=== PATIENT | female | born 1945 | race Caucasian/White ===

== ENCOUNTER 2018-10-06 11:00 | Outpatient (CLI) | payer MEDICARE, BC, SELFPAY ==
--- NOTE | 2018-10-06 11:00 | DI.RAD_ITS ---
SYMPTOM/DIAGNOSIS: PERSISTENT COUGH 3 WEEKS, POSSIBLE RLL RHONCHI R05 PA AND LATERAL CHEST: The heart is normal in size. The lungs are clear. The mediastinal structures and pleura appear intact. CONCLUSION: Normal chest. No evidence of acute cardiopulmonary disease.
== END 2018-10-06 11:20 ==
PROVIDERS: PCP Family Medicine; Visit Provider Family Medicine
DX: R05 Cough (principal)
CPT/HCPCS: 71046

== ENCOUNTER 2021-08-24 16:56 | Emergency (ER) | payer MEDICARE, BC, SELFPAY ==
--- NOTE | 2021-08-24 17:00 | DI.RAD_ITS ---
Exam(s) XR HAND RT COMPLETE EXAM: XR HAND RT COMPLETE CLINICAL HISTORY: pain. TECHNIQUE: 2D digital imaging was performed. COMPARISON: No exams were available for comparison FINDINGS: No evidence of acute fracture nor subluxation in the hand. No osseous lesions nor erosions. Small o steophytic density seen adjacent to the head of the proximal phalanx of the thumb. Mild degenerative changes including calcific densities off the dorsal aspect of the DIP joints of the 2nd and 3rd fing ers. IMPRESSION: No evidence of acute fracture. Other findings as above. DATA REPOSITORY: RADIATION DOSE DELIVERED:
--- NOTE | 2021-08-24 17:00 | DI.RAD_ITS ---
Exam(s) XR WRIST RT COMPLETE EXAM: XR WRIST RT COMPLETE CLINICAL HISTORY: pain. TECHNIQUE: 2D digital imaging was performed. COMPARISON: No exams were available for comparison FINDINGS: There is a nondisplaced fracture in the distal ulna with oblique orientation. No other fractures adrienne ntified. No significant ulnar variance. Small corticated density off the distal aspect of the ulnar styloid does not represent an acute fracture at this level. No carpal dislocation. Bone density is age-appropriate. No fractures of distal radius. IMPRESSION: There is nondisplaced in the distal diaphysis of the ulna. No fractures of the visualized radius nor carpal row bones evident DATA REPOSITORY: RADIATION DOSE DELIVERED:
[2021-08-24 17:02] VITALS: BP 156/73; PULSE 84; RESP 14; TEMP 36.6; O2SAT 97
--- NOTE | 2021-08-24 17:09 | W.ED.GENAD ---
Discharge Plan Disposition Patient Disposition: HOME Condition: Stable Discharge Details Clinical Impression: Fracture of right ulna Primary Care Provider: Oscar Bender ED Provider: Kaz Chowdhury Home Meds and New Rx's Prescriptions: New oxycodone 5 mg tablet 5 mg PO TID PRN (Reason: pain) Qty: 10 RF: 0 Continued Calcio Codie 500 MG tablet 500 mg PO QAM RF: 0 ascorbic acid (vitamin C) [Vitamin C] 500 MG tablet 500 mg PO QAM RF: 0 aspirin 81 MG tablet,chewable 81 mg PO QAM RF: 0 iron 325 MG capsule, extended release 325 mg PO QAM RF: 0 Martinic 1 EACH capsule 1 ea PO QAM RF: 0 Super B Complex + C 150 MG tablet 150 mg PO QAM RF: 0 cholecalciferol (vitamin D3) 1,000 UNITS tablet 1,000 units PO QAM RF: 0 vitamin E (dl, acetate) 400 UNITS capsule 800 unit PO QAM RF: 0 omega 2-gsd-dlm-fish oil 1 EACH capsule 1 ea PO QAM RF: 0 Discharge Instructions Additional Instructions: call orthopedics Friday for an appointment for follow up you can take 1000mg tylenol and 600mg ibuprofen every 6 hours as needed if you have severe worsening pain return to the emergency department Referrals: Kaiden Jimenez MD [ [facility]YSICIAN] - Medical Decision Making 76 yo female comes in with right wrist pain. She states earlier she was shoveling snow and the shovel got stuck against ice and her wrist bent back causing pain. Denies falls or other injuries or loc. No headache, neck pain, chest pain, abdomen pain, only has pain in the right forearm/wrist and hand. She has no tenderness in the shoulder, humerus, elbow. Has tenderness to the anterior mid right forearm, anterior mid wrist and palm, has intact sensation and pulses and no visible or palpable deformities. Normal range of motion and sensation of the wrist and hand. Suspect a sprain but given her tenderness will xray to evaluate for possible nondisplaced fracture. Has no snuffbox tenderness so doubt scaphoid fracture xray shows a nondisplaced oblique ulna fracture. She remain stable, discussed with Dr. jimenez and placed in ulnar gutter splint and will f/u as outpatient. csmt's intact after splint and no severe pain and no swelling so doubt compartment syndrome at this time. Discussed pain management and she would like to have some oxycodone in case she has discomfort with sleeping which I feel is reasonable though advised to take tylenol and ibuprofen first Differential Diagnosis Differential Diagnosis: sprain, strain, fracture Imaging Data Radiologic Study #2: Attestation: I personally reviewed and interpreted this imaging study as follows: Imaging: X-Ray My impression: ulnar fracture Radiologic Study: Attestation: I personally reviewed and interpreted this imaging study as follows: Imaging: X-Ray My impression: no acute findings HPI General Mode of arrival: ambulatory. Date/Time Provider Initiated Documentation: 08/24/21 16:57. Limitations to Documentation: no limitations. Information obtained by: patient. History of Present Illness 76 year old F presents to the emergency department with the chief complaint of right wrist pain, described as moderate, Quality is described as aching, Patient reports no radiation. Patient started experiencing this hour(s) (2) and it has been constant. Rest improves symptom(s), Movement worsens symptoms . Patient notes other (right forearm and hand pain). Patient did receive the following treatments prior to arrival, none Related Data Home Medications Medication Instructions Recorded Confirmed Calcio Codie 500 mg PO QAM 09/28/12 08/24/21 Martinic 1 ea PO QAM 09/28/12 08/24/21 Super B Complex + C 150 mg PO QAM 09/28/12 08/24/21 ascorbic acid (vitamin C) [Vitamin 500 mg PO QAM 09/28/12 08/24/21 C] aspirin 81 mg PO QAM 09/28/12 08/24/21 cholecalciferol (vitamin D3) 1,000 units PO QAM 09/28/12 08/24/21 iron 325 mg PO QAM 09/28/12 08/24/21 omega 9-fwp-vad-fish oil 1 ea PO QAM 09/28/12 08/24/21 vitamin E (dl, acetate) 800 unit PO QAM 09/28/12 08/24/21 oxycodone 5 mg PO TID PRN #10 tab 08/24/21 Previous Rx's Medication Instructions Recorded oxycodone 5 mg PO TID PRN #10 tab 08/24/21 Allergies Allergy/AdvReac Type Severity Reaction Status Date / Time No Known Allergies Allergy Unverified 08/24/21 17:04 General Stated Complaint: Orthopedic ROGER: 4 Review of Systems All systems reviewed & are unremarkable except as noted in HPI and below Constitutional Constitutional: Denies chills, Denies fever(s) and Denies weakness Cardiovascular Cardiovascular: Denies chest pain and Denies dyspnea Respiratory Respiratory: Denies cough and Denies dyspnea Gastrointestinal Gastrointestinal: Denies abdominal pain, Denies nausea and Denies vomiting Musculoskeletal Musculoskeletal: Denies joint swelling Neurologic Neurologic: Denies weakness PFSH All Active Problems (Updated 08/24/21 @ 17:43 by Kaz Chowdhury MD) Fracture of right ulna (Acute) Surgical History (Updated 05/06/18 @ 14:34 by [employer]) Ligation of fallopian tube Family History Father Heart disease Social History (Updated 10/06/18 @ 10:31 by Roxanne Wheeler LPN) Smoking/Tobacco Use Status: Never Smoking risk assessment performed?: Yes Alcohol Intake: never Drug use: Never Substance use type: does not use Household members: spouse Housing: house What type of physical activity do you participate in: none Seatbelt use: always 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 Do you feel safe at home: Yes Do you feel safe in your relationship?: Yes Exam Const General: no acute distress Orientation: alert HENMT Head: normal to inspection Ears: external ears normal General nose exam: external nose normal Mouth: moist mucous membranes Eyes General: appearance normal, both eyes and all related structures Neck Neck: normal visual inspection Resp Effort & Inspection: normal respiratory effort and able to speak in complete sentences Cardio Rate: regular rate Skin General skin exam: no rashes or lesions noted Neuro General: patient alert and patient oriented x3 Extrem General: normal to inspection Psych Mental Status: mental status grossly normal Course Vital Signs Vital signs: Vital Signs Temperature 36.6 C 08/24/21 17:02 Pulse 84 08/24/21 17:02 Respiratory Rate 14 08/24/21 17:02 Blood Pressure 156/73 H 08/24/21 17:02 Pulse Oximetry 97 08/24/21 17:02 Temperature 36.6 C 08/24/21 17:02 Temperature Source Temporal Artery Scan 08/24/21 17:02 Pulse 84 08/24/21 17:02 Respiratory Rate 14 08/24/21 17:02 Blood Pressure 156/73 H 08/24/21 17:02 Blood Pressure Position Sitting 08/24/21 17:02 Pulse Oximetry 97 08/24/21 17:02 Oxygen Delivery Method Room Air 08/24/21 17:02 Oxygen Flow Rate 0 08/24/21 17:02 Pain Level 10 08/24/21 17:02
--- NOTE | 2021-08-24 17:25 | DI.VRAD_ITS ---
PROCEDURE INFORMATION: Exam: XR Right Hand Exam date and time: 08/24/2021 5:10 PM Age: 76 years old Clinical indication: Pain; Hand; Right TECHNIQUE: Imaging protocol: XR Right hand. Views: 3 or more views. COMPARISON: No relevant prior studies available. 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 Degenerate arthritis 1st CMC joint and MCP joint. Tiny ulnar styloid ossicle. Soft tissues: Normal. IMPRESSION: No acute findings Dictated and Authenticated by: Deborah Davis MD. Ordering:EULALIA Mccurdy MD
--- NOTE | 2021-08-24 17:26 | DI.VRAD_ITS ---
PROCEDURE INFORMATION: Exam: XR Right Wrist Exam date and time: 08/24/2021 5:10 PM Age: 76 years old Clinical indication: Pain; Wrist; Right TECHNIQUE: Imaging protocol: XR Right wrist. Views: 3 or more views. COMPARISON: No relevant prior studies available. FINDINGS: Bones/joints: Nondisplaced transverse oblique fracture distal metadiaphysis of the right ulna. Tiny ulnar styloid ossicle. Mild degenerative arthritis 1st CMC joint. Soft tissues: Normal. IMPRESSION: Nondisplaced transverse oblique fracture distal metadiaphysis of the right ulna Dictated and Authenticated by: Deborah Davis MD. Ordering:EULALIA Mccurdy MD
--- NOTE | 2021-08-24 18:05 | NUR.NOTE ---
Nursing Note: Pt info faxed to ortho for referral in regards R bjorn ricci. Megan, ED
== END 2021-08-24 18:08 | disposition home or self-care (01) ==
PROVIDERS: Emergency Provider Emergency Medicine; PCP Family Medicine
DX: S52.691A Other fracture of lower end of right ulna, initial encounter for closed fracture (principal); X50.1XXA Overexertion from prolonged static or awkward postures, initial encounter
CPT/HCPCS: 29125; 99284; 73110; 73130; 99283

== ENCOUNTER 2021-08-27 11:17 | Emergency (ER) | payer MEDICARE, BC, SELFPAY ==
[2021-08-27 11:31] VITALS: BP 161/70; PULSE 76; RESP 18; TEMP 36; O2SAT 98
--- NOTE | 2021-08-27 12:29 | ED.GENADUL_ITS ---
Discharge Plan Disposition Patient Disposition: HOME Condition: Improving Discharge Details Clinical Impression: Cast discomfort, Fracture of right ulna Primary Care Provider: Oscar Bender ED Provider: Sivakumar Núñez Home Meds and New Rx's Prescriptions: Continued Calcio Codie 500 MG tablet 500 mg PO QAM RF: 0 ascorbic acid (vitamin C) [Vitamin C] 500 MG tablet 500 mg PO QAM RF: 0 aspirin 81 MG tablet,chewable 81 mg PO QAM RF: 0 iron 325 MG capsule, extended release 325 mg PO QAM RF: 0 Martinic 1 EACH capsule 1 ea PO QAM RF: 0 Super B Complex + C 150 MG tablet 150 mg PO QAM RF: 0 cholecalciferol (vitamin D3) 1,000 UNITS tablet 1,000 units PO QAM RF: 0 vitamin E (dl, acetate) 400 UNITS capsule 800 unit PO QAM RF: 0 omega 9-tak-vjv-fish oil 1 EACH capsule 1 ea PO QAM RF: 0 oxycodone 5 mg tablet 5 mg PO TID PRN (Reason: pain) Qty: 10 RF: 0 Discharge Instructions Additional Instructions: The ulnar gutter splint was replaced and made slightly shorter which appears to be much more comfortable. Please follow the instructions given to you on your visit on 08-24-2021 and follow-up with orthopedics. Please watch for new or worsening symptoms and return to the ER for any concerns Medical Decision Making 76-year-old female presents with Ortho-Glass splint irritation. Splint was removed and her symptoms resolved neuro, vascular, tendon intact. Plan is to resplint with an ulnar gutter but slightly shorter than her current splint to avoid the same irritation. Splint applied, patient tolerated well. Remains neuro, vascular, tendon intact status post splint application as examined by me. She has no additional questions or concerns and is comfortable discharge. She will follow-up with orthopedics as already directed from her previous ER visit. Standard discharge and return precautions were provided This documentation was generated using [employer] system, please disregard any oddities of phrase or misspellings. Medical Records Medical records reviewed: Yes I reviewed the patient's medical records. HPI General Mode of arrival: ambulatory . Date/Time Provider Initiated Documentation: 08/27/21 11:19 . Limitations to Documentation: no limitations . Information obtained by: patient . HPI Narrative: This is a 76-year-old female, seen in the ER on 08-24-21 for a ulnar fracture, and placed into an ulnar gutter, sling, and then felt currently referred to orthopedic presenting to the ER afternoon for evaluation of irritation from the splint. Patient states that there is an area near her elbow that is itchy and painful secondary to the friction of the splint. She denies additional injury, numbness, tingling, weakn ess, fever. She attempted to be seen by orthopedics but they had no openings today. She has no additional questions or concerns at this time. Related Data Home Medications Medication Instructions Recorded Confirmed Calcio oCdie 500 mg PO QAM 09/28/12 08/24/21 Martinic 1 ea PO QAM 09/28/12 08/24/21 Super B Complex + C 150 mg PO QAM 09/28/12 08/24/21 ascorbic acid (vitamin C) [Vitamin 500 mg PO QAM 09/28/12 08/24/21 C] aspirin 81 mg PO QAM 09/28/12 08/24/21 cholecalciferol (vitamin D3) 1,000 units PO QAM 09/28/12 08/24/21 iron 325 mg PO QAM 09/28/12 08/24/21 omega 0-jal-wzo-fish oil 1 ea PO QAM 09/28/12 08/24/21 vitamin E (dl, acetate) 800 unit PO QAM 09/28/12 08/24/21 oxycodone 5 mg PO TID PRN #10 tab 08/24/21 Previous Rx's Medication Instructions Recorded oxycodone 5 mg PO TID PRN #10 tab 08/24/21 Allergies Allergy/AdvReac Type Severity Reaction Status Date / Time No Known Allergies Allergy Unverified 08/24/21 17:04 General Stated Complaint: Orthopedic ROGER: 4 Review of Systems Constitutional Constitutional: Denies fever(s) and Denies weakness Musculoskeletal Musculoskeletal: Denies arthralgias, Denies numbness and Denies tingling Integumentary/Breasts Skin/Breast: Denies erythema and Denies rash Neurologic Neurologic: Denies numbness, Denies tingling and Denies weakness PFSH All Active Problems Fracture of right ulna (Acute) Cast discomfort (Acute) Surgical History Ligation of fallopian tube Family History Father Heart disease Social History Smoking/Tobacco Use Status: Never Smoking risk assessment performed?: Yes Alcohol Intake: never Drug use: Never Substance use type: does not use Household members: spouse Housing: house What type of physical activity do you participate in: none Seatbelt use: always 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 Do you feel safe at home: Yes Do you feel safe in your relationship?: Yes Exam Const General: cooperative, healthy appearing, comfortable and no acute distress Orientation: alert and awake HENMT Head: normal to inspection, normocephalic and atraumatic Eyes Conjunctivae: conjunctivae normal Neck Neck: normal visual inspection, trachea midline and supple Resp Effort & Inspection: normal respiratory effort and able to speak in complete sentences Cardio Rate: regular rate Rhythm: regular rhythm Skin General skin exam: no rashes or lesions noted Neuro General: patient alert, patient awake, patient oriented x3, moves all extremities and no focal motor deficits Speech: speech normal Gait: normal gait Sensory Exam: no sensory deficits noted Extrem Other: Right arm is in a ulnar gutter splint which goes up past the elbow. Patient has full range of motion of her fingers, normal capillary refill. I have removed the splint. Patient reports immediate relief of her symptoms. Patient has diffuse mild discomfort across the distal forearm and the wrist worse on the ulnar side. Skin is intact. Neuro, vascular, tendon intact. Normal radial pulse and capillary refill. Psych Appearance: grossly normal Mental Status: mental status grossly normal Course Vital Signs Vital signs: Vital Signs Temperature 36 C L 08/27/21 11:31 Pulse 76 08/27/21 11:31 Respiratory Rate 18 08/27/21 11:31 Blood Pressure 161/70 H 08/27/21 11:31 Pulse Oximetry 98 08/27/21 11:31 Temperature 36 C L 08/27/21 11:31 Temperature Source Temporal Artery Scan 08/27/21 11:31 Pulse 76 08/27/21 11:31 Respiratory Rate 18 08/27/21 11:31 Blood Pressure 161/70 H 08/27/21 11:31 Blood Pressure Position Sitting 08/27/21 11:31 Pulse Oximetry 98 08/27/21 11:31 Oxygen Delivery Method Room Air 08/27/21 11:31 Oxygen Flow Rate 0 08/27/21 11:31 Procedures Orthopedic Splinting/Casting Injury #1: Side: right Upper Extremity Injury Location: wrist Upper Extremity Immobilizer: ulnar gutter (With Ortho-Glass, made 1.5 inches shorter than her previous splint)
== END 2021-08-28 07:13 | disposition home or self-care (01) ==
PROVIDERS: Emergency Provider Physician Assistant; PCP Family Medicine
DX: M25.521 Pain in right elbow (principal); G89.18 Other acute postprocedural pain; S52.234D Nondisplaced oblique fracture of shaft of right ulna, subsequent encounter for closed fracture with routine healing; X50.1XXD Overexertion from prolonged static or awkward postures, subsequent encounter
CPT/HCPCS: 29125; 99281

== ENCOUNTER 2021-09-10 08:44 | Outpatient (CLI) | payer MEDICARE, BC, SELFPAY ==
--- NOTE | 2021-09-10 08:30 | DI.RAD_ITS ---
Exam(s) XR WRIST RT COMPLETE EXAM: XR WRIST RT COMPLETE CLINICAL HISTORY: RIGHT ULNA FRACTURE. TECHNIQUE: 2D digital imaging was performed. COMPARISON: CR,XR XR WRIST RT COMPLETE from 08/24/2021 FINDINGS: The fracture in the distal ulna is again noted. No significant change nor for further displacement. No change in ulnar variance. IMPRESSION: DATA REPOSITORY: RADIATION DOSE DELIVERED:
== END 2021-09-10 08:45 | disposition home or self-care (01) ==
LOC: DIORS 08:44
PROVIDERS: PCP Family Medicine; Referring Provider Student in an Organized Health Care Education/Training Program; Visit Provider Physician Assistant
DX: S52.234D Nondisplaced oblique fracture of shaft of right ulna, subsequent encounter for closed fracture with routine healing (principal); X50.1XXD Overexertion from prolonged static or awkward postures, subsequent encounter
CPT/HCPCS: 99213; 73110

== ENCOUNTER 2021-09-24 09:13 | Outpatient (CLI) | payer MEDICARE, BC, SELFPAY ==
--- NOTE | 2021-09-24 08:45 | DI.RAD_ITS ---
Exam(s) XR WRIST RT COMPLETE EXAM: XR WRIST RT COMPLETE CLINICAL HISTORY: RIGHT ULNA FRACTURE. TECHNIQUE: 2D digital imaging was performed. Three views. COMPARISON: CR XR WRIST RT COMPLETE from 09/10/2021 FINDINGS: No change in alignment of distal ulnar fracture. Some interval healing. No new abnormalities. DATA REPOSITORY: RADIATION DOSE DELIVERED:
== END 2021-09-24 09:14 | disposition home or self-care (01) ==
LOC: DIORS 09:13
PROVIDERS: PCP Family Medicine; Referring Provider Family Medicine; Visit Provider Physician Assistant Surgical
DX: S52.691D Other fracture of lower end of right ulna, subsequent encounter for closed fracture with routine healing (principal); X50.1XXD Overexertion from prolonged static or awkward postures, subsequent encounter
CPT/HCPCS: 99214; 73110

== ENCOUNTER 2021-10-15 09:42 | Outpatient (CLI) | payer MEDICARE, BC, SELFPAY ==
--- NOTE | 2021-10-15 08:45 | DI.RAD_ITS ---
Exam(s) XR WRIST RT LIMITED EXAM: XR WRIST RT LIMITED INDICATION: fx R ulna. COMPARISON: CR,XR XR WRIST RT COMPLETE from 08/24/2021 CR XR WRIST RT COMPLETE from 09/24/2021 TECHNIQUE: 2D digital imaging was performed. Two views. FINDINGS: There has been no change in the alignment of the distal ulnar fracture. There is increased callus f ormation around the fracture site. No new abnormalities. DATA REPOSITORY: RADIATION DOSE DELIVERED:
== END 2021-10-15 09:43 | disposition home or self-care (01) ==
LOC: DIORS 09:42
PROVIDERS: PCP Family Medicine; Referring Provider Family Medicine; Visit Provider Physician Assistant
DX: X58.XXXA Exposure to other specified factors, initial encounter (principal); S52.201A Unspecified fracture of shaft of right ulna, initial encounter for closed fracture
CPT/HCPCS: 99213; 73100

== ENCOUNTER → 2021-11-26 09:19 | Outpatient (BNVA) | payer MEDICARE, BC, SELFPAY | PROVIDERS: PCP Family Medicine; Referring Provider Family Medicine; Visit Provider Student in an Organized Health Care Education/Training Program | DX: X58.XXXA Exposure to other specified factors, initial encounter (principal); S52.201A Unspecified fracture of shaft of right ulna, initial encounter for closed fracture | CPT/HCPCS: 99212 ==

== ENCOUNTER 2022-09-08 08:49 | Emergency (ER) | payer MEDICARE, BC, SELFPAY ==
[2022-09-08] VITALS (19 sets, daily range): BP systolic 127–159; BP diastolic 54–80; PULSE 73–81; RESP 7–16; TEMP 36.8; O2SAT 92–99
--- NOTE | 2022-09-08 09:00 | RT.EKG_ITS ---
APPROVED REPORT Exam: Resting ECG Reason for Exam: Fatigue, dizziness Patient Location: E HR:75 bpm ECG Measurements Heart Rate 75 AXIS VA 177 P 71 QRSd 86 QRS 35 QT 403 T 2 QTc 452 Conclusion Sinus rhythm...normal P axis, V-rate 60- 99 He narrow complex normal sinus rhythm at a rate of 75. Normal axis. T wave inversion in lead III. Mild ST segment depression in V4 and V5 no prior for comparison. No acute injury pattern.
--- NOTE | 2022-09-08 09:11 | ED.GENADUL_ITS ---
Discharge Plan Disposition Patient Disposition: Home Condition: Stable Discharge Details Clinical Impression: GLENN Primary Care Provider: Oscar Bender ED Provider: Joshua Chauhan Home Meds and New Rx's Prescriptions: Continued acetaminophen [Pain Relief (acetaminophen)] 650 mg tablet extended release 1,300 mg PO Q12H PRN Calcio Codie 500 MG tablet 500 mg PO QAM ascorbic acid (vitamin C) [Vitamin C] 500 MG tablet 500 mg PO QAM aspirin 81 MG tablet,chewable 81 mg PO QAM iron 325 MG capsule, extended release 325 mg PO QAM Martinic 1 EACH capsule 1 ea PO QAM Super B Complex + C 150 MG tablet 150 mg PO QAM cholecalciferol (vitamin D3) 1,000 UNITS tablet 1,000 units PO QAM vitamin E (dl, acetate) 400 UNITS capsule 800 unit PO QAM omega 2-wcj-wua-fish oil 1 EACH capsule 1 ea PO QAM Discharge Instructions Instructions: COVID-19 (Coronavirus Disease 2019) (ED) Additional Instructions: Please continue to monitor your symptoms, stay well-hydrated, and use age- appropriate medications for your symptoms. If you develop any severe chest pain shortness of breath or significant worsening of your symptoms feel free to return to the emergency department for reassessment otherwise if not improving over the next 5 to 7 days follow-up with your primary care provider for recheck. Referrals: Oscar Bender DO [Primary Care Provider] - 5 days (As needed for reassessment) Discharge Data Discharge Date/Time-TO BE ENTERED AT DEPARTURE: 09/08/22 11:21 Medical Decision Making Patient presenting to the emergency department for chief complaint of nausea vomiting, diarrhea, fever chills, headaches, sore throat and cough. Patient reports this has been going on for the past 8 days. She states for the first 6 days or so it was just mild to moderate fatigue but then the other symptoms started recurring over the last 48 hours. She states since yesterday she has not been able to keep anything but water down. Patient did see her primary care provider who ordered some labs which are not due to be drawn for another 6 days. Patient states that she typically does not go to the doctor so does not have many medical problems. Physical exam shows acutely ill-appearing patient but nontoxic, stable vital signs, no worrisome physical exam findings noted. We will plan on checking labs, EKG, urinalysis and performing COVID test. Patient is unvaccinated for COVID but denies any known contact. Pending results will give IV fluids and Zofran Reviewed patient's labs and she does show a positive antigen test for COVID, CBC shows slight leukopenia which does match viral illness, sodium slightly low at 132, chloride of 95, glucose of 108, AST of 39 lipase is within normal range. Troponin is negative. Please see physician interpretation for interpretation of EKG. review patient is in sinus rhythm and no findings to suggest acute STEMI. We feel that patient's symptoms are consistent with acute COVID. Unfortunately given that patient has had symptoms for 8 days or greater she is not a candidate for any COVID treatments at this time. Patient is not hypoxic not hypotensive not in any signs of shock so I do feel that she is appropriate for continued outpatient monitoring. Reviewed urinalysis that does show urine ketones but no signs of infection. I do feel the patient is stable for discharge and continue conservative management on an outpatient basis. Did discuss with patient about typical recovery or emergent symptoms to return to the ER for. We will send patient home with limited supply of Zofran to use for any further nausea vomiting and encourage continued oral hydration. After discussion of diagnosis and plan of care patient has no further needs, questions, or concerns and states clear understanding to return to the emergency department for any worsening symptoms. This documentation was generated using [employer] dictation system, please disregard any oddities of phrase or misspellings. Medical Records Medical records reviewed: Yes I reviewed the patient's medical records. Medical records narrative: Reviewed primary care note from earlier this week. HPI General Mode of arrival: ambulatory . Date/Time Provider Initiated Documentation: 09/08/22 08:49 . Limitations to Documentation: no limitations . Information obtained by: patient, RN notes reviewed and old records reviewed . History of Present Illness 77 year old F presents to the emergency department with the chief complaint of Fatigue, nausea vomiting, fever chills, described as moderate and severe, Quality is described as other (Denies pain or discomfort), Patient started experiencing this day(s) (8) and it has been constant. No relieving factors improve symptom(s), No exacerbating factors reported . Patient did receive the following treatments prior to arrival, n one Related Data Home Medications Medication Instructions Recorded Confirmed ascorbic acid (vitamin C) 500 mg 500 mg PO QAM 09/28/12 11/26/21 tablet (Vitamin C) aspirin 81 mg chewable tablet 81 mg PO QAM 09/28/12 11/26/21 calcium 500 mg tablet (Calcio del 500 mg PO QAM 09/28/12 11/26/21 Mar) cholecalciferol (vitamin D3) 25 1,000 units PO QAM 09/28/12 11/26/21 mcg (1,000 unit) tablet ferrous sulfate 325 mg (65 mg 325 mg PO QAM 09/28/12 11/26/21 iron) capsule,extended release (iron ER) omega 1-krj-rmk-fish oil 300 1 ea PO QAM 09/28/12 11/26/21 mg-1,000 mg capsule vitamin B comp with C no.4 150 mg 150 mg PO [facility] 09/28/12 11/26/21 tablet (Super B Complex + C) vitamin D24-jpgaptjoc factor 110 1 ea PO [facility] 09/28/12 11/26/21 mg-0.5 mg capsule (Martinic) vitamin E (dl, acetate) 180 mg 800 unit PO [facility] 09/28/12 11/26/21 (400 unit) capsule acetaminophen 650 mg 1,300 mg PO Q12H PRN 09/05/22 tablet,extended release (Pain Relief (acetaminophen)) Allergies Allergy/AdvReac Type Severity Reaction Status Date / Time No Known Allergies Allergy Verified 09/05/22 11:36 General Stated Complaint: Nausea/Vomit/Diar ROGER: 3 Review of Systems Constitutional Constitutional: Reports chills, Reports fever(s), Reports headache(s) (Intermittent none currently), Reports lethargy, Reports malaise and Reports poor appetite Eyes Eyes: Denies change in vision ENT Ears, Nose, Mouth, and Throat: Reports headache(s) (Intermittent none currently), Reports nasal congestion and Reports sore throat Cardiovascular Cardiovascular: Denies chest pain and Denies dyspnea Respiratory Respiratory: Reports cough and Denies dyspnea Gastrointestinal Gastrointestinal: Denies abdominal pain, Reports diarrhea, Reports nausea and Reports vomiting Genitourinary Genitourinary: Denies dysuria and Denies urinary urgency Musculoskeletal Musculoskeletal: Reports myalgias Integumentary/Breasts Skin/Breast: Reports rash Neurologic Neurologic: Reports headache(s) (Intermittent none currently) PFSH All Active Problems (Updated 09/08/22 @ 11:02 by Joshua Chauhan NP) COVID (Acute) Fatigue (Acute) Fracture of right ulna (Acute 08/24/21) Surgical History Ligation of fallopian tube Family History Father Heart disease Social History Smoking/Tobacco Use Status: Never Smoking risk assessment performed?: Yes Alcohol Intake: never Drug use: Never Substance use type: does not use Household members: spouse Housing: house What type of physical activity do you participate in: none Seatbelt use: always 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 Do you feel safe at home: Yes Do you feel safe in your relationship?: Yes Exam Const General: cooperative and no acute distress Orientation: alert and awake HENMT Head: normal to inspection, normocephalic and atraumatic Ears: hearing grossly normal bilaterally and TM's normal bilaterally General nose exam: external nose normal Face and sinus: no erythema Mouth: oral mucosae normal, no drooling, no muffled voice and no trismus Throat: posterior oropharynx normal Neck Neck: normal visual inspection, full ROM, no lymphadenopathy, no meningeal signs, trachea midline and supple Resp Effort & Inspection: normal respiratory effort and able to speak in complete sentences Auscultation: clear to auscultation bilaterally Cardio Rate: regular rate Rhythm: regular rhythm Heart Sounds: S1 normal, S2 normal, normal S1 and S2, no click, no gallops, no murmurs and no rubs GI Palpation: soft, no hepatosplenomegaly, not firm, no guarding, no masses, no pulsatile masses, not rigid, no splenomegaly and nontender Auscultation: normal bowel sounds Skin General skin exam: no rashes or lesions noted and dry skin (warm) Neuro General: patient alert, patient awake, patient oriented x3, gait normal and moves all extremities Cognition: normal cognition Speech: speech normal Course Vital Signs Vital signs: Vital Signs Temperature 36.8 C 09/08/22 08:52 Pulse 81 09/08/22 08:52 Respiratory Rate 16 09/08/22 08:52 Blood Pressure 159/80 H 09/08/22 08:52 Pulse Oximetry 98 09/08/22 08:52 Temperature 36.8 C 09/08/22 08:52 Temperature Source Skin 09/08/22 08:52 Pulse 81 09/08/22 08:52 Respiratory Rate 16 09/08/22 08:52 Respiratory Effort Normal, Non-Labored 09/08/22 09:05 Blood Pressure 159/80 H 09/08/22 08:52 Pulse Oximetry 98 09/08/22 08:52 Oxygen Delivery Method Room Air 09/08/22 08:52 Oxygen Flow Rate 0 09/08/22 08:52 Pain Level 5 09/08/22 08:52
[2022-09-08 09:24] LABS: Abs Immature Grans 0.01 10^3/uL (0.0-0.06); Absolute Eosinophil Count 0.02 10^3/uL (0.0-0.7); Absolute Monocyte Count 0.35 10^3/uL (0.1-0.8); Absolute Neutrophil Count 1.48 10^3/uL (1.2-6.7); Eosinophils % 0.7; HCT 39.7 % (36.0-46.0); HGB 13.5 g/dL (11.2-15.7); Immature Grans % 0.3; Lymphocytes % 37.2; MCH 30.2 pg (27.0-33.0); MCV 89 fL (80-95); Monocytes % 11.8; Platelet Count 148 10^3/uL (130-400); RBC 4.47 10^6/uL (3.93-5.22); RDW-SD 42.5 fL; WBC 2.96 10^3/uL (4.4-10.8)
[2022-09-08 09:45] LABS: ALT 38 U/L (14-59); AST 39 U/L (15-37); Albumin 3.9 g/dL (3.4-5.0); Alkaline Phosphatase 99 U/L (46-116); Anion Gap 9.9 mmol/L (3-11); BUN 8 mg/dL (7-18); Bilirubin, Total 0.5 mg/dL (0.2-1.0); CO2 27.1 mmol/L (21.0-32.0); CREATININE 0.6 mg/dL (0.55-1.02); Calcium 9.1 mg/dL (8.5-10.1); Chloride 95 mmol/L (98-107); Estimated GFR 91.25 (mL/min/1.73m2); Glucose 108 mg/dL (74-106); Lipase 27 U/L (16-77); Magnesium 1.8 mg/dL (1.8-2.4); Potassium 3.7 mmol/L (3.5-5.1); Sodium 132 mmol/L (136-145); Total Protein 7.2 g/dL (6.4-8.2); Troponin I < 50 ng/L (<or=60)
[2022-09-08] MEDS: Normal Saline 1,000 ML 1000 ML IV (09:56)
[2022-09-08] MEDS: Ondansetron 4 MG/2 ML VIAL IVP (09:56)
[2022-09-08 10:53] LABS: Bilirubin Negative (Negative); Blood Negative (Negative); Clarity Clear (Clear); Glucose Negative (Negative); Ketones 80 mg/dL (Negative); Leukocyte Esterase Negative (Negative); Nitrite Negative (Negative); Specific Gravity 1.015 (1.005-1.025); Urobilinogen 0.2 mg/dL (Up to 0.2)
[2022-09-08] MEDS: Ondansetron O.D.T. 4 MG TABEF, 3 TABS/BTL PO (11:18)
== END 2022-09-08 11:21 | disposition home or self-care (01) ==
PROVIDERS: Emergency Provider Nurse Practitioner Family; PCP Family Medicine
DX: U07.1 COVID-19 (principal); D72.829 Elevated white blood cell count, unspecified; E87.1 Hypo-osmolality and hyponatremia; Z86.16 Personal history of COVID-19
CPT/HCPCS: 36415; 80053; 83690; 93005; 96361; 96374; 99284; 81003; 83735; 84484; 85025; 93010; J2405

== ENCOUNTER 2022-09-10 06:17 | Emergency (ER) | payer MEDICARE, BC, SELFPAY ==
[2022-09-10 06:24] VITALS: BP 174/85; PULSE 75; RESP 27; TEMP 36.6; O2SAT 95
--- NOTE | 2022-09-10 06:30 | RT.EKG_ITS ---
APPROVED REPORT Exam: Resting ECG Reason for Exam: n/v Patient Location: E HR:77 bpm ECG Measurements Heart Rate 77 AXIS RI 187 P 68 QRSd 93 QRS 29 QT 385 T 21 QTc 437 Conclusion Sinus rhythm...normal P axis, V-rate 60- 99 Nonspecific T abnrm, anterolateral leads...T <-0.10mV, I aVL V2-V6
--- NOTE | 2022-09-10 06:34 | DI.CT_ITS ---
Exam(s) CT ABDOMEN PELVIS W EXAM: CT ABDOMEN PELVIS W CLINICAL HISTORY: n/v, middle abdominal pain TECHNIQUE: Imaging Protocol: Axial computed tomography images with coronal and sagittal reformatted images were created and reviewed CONTRAST MATERIAL: Intravenous: Omnipaque 350 Contrast volume:100 mL Oral: No COMPARISON: No exams were available for comparison FINDINGS: The examination is limited due to patient motion artifact. ABDOMEN: Lung Bases: There is a small hiatal hernia. Liver: Normal density. No measurable mass. There is focal fatty infiltration seen in the left lobe of the liver. Portal, Superior Mesenteric, and Splenic Veins: Unremarkable. Gallbladder and Biliary Tract: No radiodense calculus or dilation. Pancreas: Normal density, no abnormal calcifications or inflammatory process. Spleen: Normal. Adrenals: No masses seen. Kidneys: Normal size, contour and axis. No radiodense stones or obstructive uropathy. No masses seen. Abdominal Aorta: Abdominal portion non-dilated. Atherosclerosis. Bowel: No obstruction or bowel wall thickening. Appendix is unremarkable. Peritoneal Cavity: No ascites, collection or mesenteric inflammatory response. No free air. Lymph Nodes: Within normal limits. Bones: Within normal limits for the patient's age. Soft Tissues: Unremarkable. PELVIS: Bladder: Symmetric distention, no gross wall thickening. Reproductive Organs: Unremarkable as visualized. Lymph Nodes: Within normal limits. Bones: Within normal limits for the patient's age. IMPRESSION: 1. No acute abdominal or pelvic process. 2. Findings were discussed with Dr. Nixon at 9:35 a.m. on 09/10/2022. RADIATION DOSE DELIVERED: 1,319.65mGy.cm Total DLP DATA REPOSITORY: All CT scans at this facility are submitted to the National Radiology Data Registry (NRDR) Dose Index Registry (DIR) with the [employer] (ACR). RADIATION OPTIMIZATION: All CT scans at this facility use at least one of these dose optimization te chniques: automated exposure control; mA and/or kV adjustment per patient size (includes targeted exa ms where dose is matched to clinical indication); or iterative reconstruction.
--- NOTE | 2022-09-10 06:36 | W.ED.GENAD ---
Discharge Plan Disposition Condition: Stable Discharge Details Chief Complaint: Nausea/Vomit/Diar Clinical Impression: N&V (nausea and vomiting), Abdominal pain Primary Care Provider: Oscar Bender ED Provider: Kaz Chowdhury Home Meds and New Rx's Prescriptions: No Action acetaminophen [Pain Relief (acetaminophen)] 650 mg tablet extended release 1,300 mg PO Q12H PRN Calcio Codie 500 MG tablet 500 mg PO QAM ascorbic acid (vitamin C) [Vitamin C] 500 MG tablet 500 mg PO QAM aspirin 81 MG tablet,chewable 81 mg PO QAM iron 325 MG capsule, extended release 325 mg PO QAM Martinic 1 EACH capsule 1 ea PO QAM Super B Complex + C 150 MG tablet 150 mg PO QAM cholecalciferol (vitamin D3) 1,000 UNITS tablet 1,000 units PO QAM vitamin E (dl, acetate) 400 UNITS capsule 800 unit PO QAM omega 8-yja-ktn-fish oil 1 EACH capsule 1 ea PO QAM Medical Decision Making 77 yo female comes in with 10 days of intermittent n/v and chest bruning/abdominal pain. She was seen 2 days ago in the ED for similar symptoms and had a positive poc antigen test for covid. She denies any fevers, chills, dyspnea. She denies any recent travel. She states she feels dehydrated. She arrives hemodynamically stable though appears fatigued and dehydrated. She is caox4 speaking clearly, no focal motor or sensation deficits. She has clear lungs, no murmurs, soft abdomen though she is tender to the mid abdomen. She has no peritoneal signs. She does describe a burning sensation in the mid chest and mid abdomen primarily when she is about to vomit. Unclear if these symptoms are due to her being positive for covid, will check, cbc, cmp, lipase, ekg/tropinin and given continued pain in the abdomen obtain ct abd/pelvis to evaluate for possible sbo though unlikely given lack of distention on exam pt signed out to oncoming provider pending labs and ct imaging, reassessment after fluids Differential Diagnosis Differential Diagnosis: covid, pancreatitis, sbo Medical Records Medical records reviewed: Yes I reviewed the patient's medical records. Lab Data Lab results reviewed: Yes I reviewed the patient's lab results. ECG Data Attestation: I personally reviewed and interpreted this ECG (s) as follows: Prior ECG tracings: available for review Interpretation: sinus rhythm, rate of 77, pr 187, no acute st t wave ischemic findings HPI General Mode of arrival: ambulatory. Date/Time Provider Initiated Documentation: 09/10/22 06:18. Limitations to Documentation: no limitations. Information obtained by: patient. History of Present Illness 77 year old F presents to the emergency department with the chief complaint of n/v, described as moderate, Patient started experiencing this day(s) (10) and it has been intermittent. No relieving factors improve symptom(s), No exacerbating factors reported . Patient notes denies fever/chills and shortness of breath. Patient did receive the following treatments prior to arrival, none Related Data Home Medications Medication Instructions Recorded Confirmed ascorbic acid (vitamin C) 500 mg 500 mg PO QAM 09/28/12 09/10/22 tablet (Vitamin C) aspirin 81 mg chewable tablet 81 mg PO QAM 09/28/12 09/10/22 calcium 500 mg tablet (Calcio del 500 mg PO QAM 09/28/12 09/10/22 Mar) cholecalciferol (vitamin D3) 25 1,000 units PO QAM 09/28/12 09/10/22 mcg (1,000 unit) tablet ferrous sulfate 325 mg (65 mg 325 mg PO QA 09/28/12 09/10/22 iron) capsule,extended release (iron ER) omega 3-khb-skz-fish oil 300 1 ea PO QAM 09/28/12 09/10/22 mg-1,000 mg capsule vitamin B comp with C no.4 150 mg 150 mg PO QAM 09/28/12 09/10/22 tablet (Super B Complex + C) vitamin B02-lomnqkamc factor 110 1 ea PO QAM 09/28/12 09/10/22 mg-0.5 mg capsule (Martinic) vitamin E (dl, acetate) 180 mg 800 unit PO QAM 09/28/12 09/10/22 (400 unit) capsule acetaminophen 650 mg 1,300 mg PO Q12H PRN 09/05/22 09/10/22 tablet,extended release (Pain Relief (acetaminophen)) Allergies Allergy/AdvReac Type Severity Reaction Status Date / Time No Known Allergies Allergy Verified 09/10/22 06:23 General Stated Complaint: Nausea/Vomit/Diar ROGER: 3 Review of Systems All systems reviewed & are unremarkable except as noted in HPI and below Constitutional Constitutional: Denies chills and Denies fever(s) Cardiovascular Cardiovascular: Denies chest pain and Denies dyspnea Respiratory Respiratory: Denies dyspnea Genitourinary Genitourinary: Denies dysuria Musculoskeletal Musculoskeletal: Denies joint swelling Psychiatric Psychiatric: Denies depression PFSH All Active Problems (Updated 09/10/22 @ 07:27 by Kaz Chowdhury MD) COVID (Acute) N&V (nausea and vomiting) (Acute) Abdominal pain (Acute) Fatigue (Acute) Fracture of right ulna (Acute 08/24/21) Surgical History Ligation of fallopian tube Family History Father Heart disease Social History Smoking/Tobacco Use Status: Never Smoking risk assessment performed?: Yes Alcohol Intake: never Drug use: Never Substance use type: does not use Household members: spouse Housing: house What type of physical activity do you participate in: none Seatbelt use: always Drive 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 Do you feel safe at home: Yes Do you feel safe in your relationship?: Yes Exam Const General: no acute distress Orientation: alert HENMT Head: normal to inspection Ears: external ears normal General nose exam: external nose normal Mouth: moist mucous membranes Eyes General: appearance normal, both eyes and all related structures Neck Neck: normal visual inspection Resp Effort & Inspection: normal respiratory effort and able to speak in complete sentences Auscultation: clear to auscultation bilaterally Cardio Jugular venous pressure: no JVD Rate: regular rate Heart Sounds: no murmurs GI Palpation: soft and tender Skin General skin exam: no rashes or lesions noted Neuro General: patient alert and patient oriented x3 Extrem General: normal to inspection Psych Mental Status: mental status grossly normal Course Vital Signs Vital signs: Vital Signs Temperature 36.6 C 09/10/22 06:24 Pulse 75 09/10/22 06:24 Respiratory Rate 27 H 09/10/22 06:24 Blood Pressure 174/85 H 09/10/22 06:24 Pulse Oximetry 95 09/10/22 06:24 Temperature 36.6 C 09/10/22 06:24 Temperature Source Temporal Artery Scan 09/10/22 06:24 Pulse 75 09/10/22 06:24 Respiratory Rate 27 H 09/10/22 06:24 Respiratory Effort Normal, Non-Labored 09/10/22 06:27 Blood Pressure 174/85 H 09/10/22 06:24 Blood Pressure Position Sitting 09/10/22 06:24 Pulse Oximetry 95 09/10/22 06:24 Oxygen Delivery Method Room Air 09/10/22 06:24 Oxygen Flow Rate 0 09/10/22 06:24 Pain Level 0 09/10/22 06:24
[2022-09-10] MEDS: Normal Saline 1,000 ML 1000 ML IV (06:53)
[2022-09-10] MEDS: Ondansetron 4 MG/2 ML VIAL IVP ×2 (06:57→10:08)
[2022-09-10 07:25] LABS: Influenza A PCR Negative (Negative); Influenza B PCR Negative (Negative); RSV PCR Negative (Negative)
[2022-09-10 07:28] LABS: COVID-19 PCR Positive (Negative); Source Nasopharynx
[2022-09-10 07:39] LABS: Abs Immature Grans 0.01 10^3/uL (0.0-0.06); Absolute Basophil Count 0.01 10^3/uL (0.0-0.2); Absolute Eosinophil Count 0.01 10^3/uL (0.0-0.7); Absolute Monocyte Count 0.36 10^3/uL (0.1-0.8); Absolute Neutrophil Count 2.15 10^3/uL (1.2-6.7); Basophils % 0.3; Eosinophils % 0.3; HGB 12.1 g/dL (11.2-15.7); Immature Grans % 0.3; Lymphocytes % 26.2; MCHC 33.6 % (32.0-36.0); MCV 89 fL (80-95); MPV 9.3 fL (8.0-11.0); Monocytes % 10.5; Neutrophils % 62.4; Platelet Count 159 10^3/uL (130-400); RBC 4.03 10^6/uL (3.93-5.22); RDW 12.5 % (11.7-14.6); RDW-SD 41.4 fL; WBC 3.44 10^3/uL (4.4-10.8)
[2022-09-10 08:03] LABS: ALT 66 U/L (14-59); AST 47 U/L (15-37); Albumin 3.2 g/dL (3.4-5.0); Alkaline Phosphatase 88 U/L (46-116); Anion Gap 9.2 mmol/L (3-11); BUN 9 mg/dL (7-18); Bilirubin, Total 0.7 mg/dL (0.2-1.0); CO2 24.8 mmol/L (21.0-32.0); CREATININE 0.6 mg/dL (0.55-1.02); Calcium 8.2 mg/dL (8.5-10.1); Chloride 98 mmol/L (98-107); Estimated GFR 91.25 (mL/min/1.73m2); Glucose 95 mg/dL (74-106); Lipase 17 U/L (16-77); Magnesium 1.4 mg/dL (1.8-2.4); Potassium 3.5 mmol/L (3.5-5.1); Sodium 132 mmol/L (136-145); Total Protein 6.1 g/dL (6.4-8.2); Troponin I < 50 ng/L (<or=60)
--- NOTE | 2022-09-10 08:06 | W.EDPROG ---
Date of service: 09/10/22 Time of Service: 10:27 Medical Decision Making I received signout on this 77-year-old female who has been positive for COVID for the past approximately 10 days with persistent reflux symptoms. She is pending a CT scan of her abdomen and pelvis and a troponin. If her initial troponin is negative she will not require subsequent troponins based on the duration of time of her symptoms. 10 AM I met with the patient after her CT scan returned and was reassuring. She was not hypoxic and does not require hospitalization for her COVID. Her labs are consistent with COVID infection as she has leukopenia. She does not appear markedly dehydrated based on her normal BUN however she does have ketonuria. She does not have an anion gap nor hyperglycemia to suggest DKA. Her magnesium was mildly low for which I gave her oral repletion. She is not an alcoholic so I do not feel that she is at risk for ongoing hypomagnesemia. We will have health hospice community liaison [place] ask patient to be seen in follow-up at least virtually in the next several days by her primary care provider. 10:22 AM Patient was able to tolerate p.o. in the ED. She drank a lacie palmer and was eating a sandwich. I advised her that she was likely at the end of her COVID illness and that she was safe for discharge. I advised her to return to the fevers any shortness of breath or could not eat or drink as result of nausea or vomiting. Will discharge with short course of ondansetron. Sign Out Sign Out Data: Sign Out Comment: positive for covid, symptoms for 10 days including n/v and abdominal pain that is worsening, pending IV fluids, zofran, labs and ct and reassessment. Last updated by Kaz Chowdhury MD at 09/10/22 07:31 Discharge Plan Disposition Patient Disposition: Home Discharge Details Clinical Impression: N&V (nausea and vomiting), Abdominal pain Primary Care Provider: Oscar Bender ED Provider: Rasheed Dickinson Home Meds and New Rx's Prescriptions: New ondansetron 4 mg tablet,disintegrating 4 mg PO BID 5 Days Qty: 10 0RF No Action acetaminophen [Pain Relief (acetaminophen)] 650 mg tablet extended release 1,300 mg PO Q12H PRN Calcio Codie 500 MG tablet 500 mg PO QAM ascorbic acid (vitamin C) [Vitamin C] 500 MG tablet 500 mg PO QAM aspirin 81 MG tablet,chewable 81 mg PO QAM iron 325 MG capsule, extended release 325 mg PO QAM Martinic 1 EACH capsule 1 ea PO QAM Super B Complex + C 150 MG tablet 150 mg PO QAM cholecalciferol (vitamin D3) 1,000 UNITS tablet 1,000 units PO QAM vitamin E (dl, acetate) 400 UNITS capsule 800 unit PO QAM omega 8-kvk-wqs-fish oil 1 EACH capsule 1 ea PO QAM Discharge Instructions Instructions: Acute Nausea and Vomiting (ED) Additional Instructions: You are seen in the emergency department for your nausea and vomiting. Your CAT scan showed no acute abnormalities in your stomach. Please take these nausea medications as needed. Please return to the emergency department if you cannot eat or drink. Please also take acetaminophen (Tylenol) 1000 mg every 8 hours as needed for nausea.
[2022-09-10] MEDS: Normal Saline - Diluent 50 ML VIAL IJ (08:38)
[2022-09-10] MEDS: Omnipaque 350 MG/ML 100 ML BTL IJ (08:38)
[2022-09-10] MEDS: Normal Saline Flush 10 ML SYR IVP (08:39)
[2022-09-10] MEDS: Magnesium Oxide 400 MG TAB 800 MG PO (09:22)
--- NOTE | 2022-09-10 09:29 | DI.RAD_ITS ---
Exam(s) XR PORTABLE CHEST AP EXAM: XR PORTABLE CHEST AP CLINICAL HISTORY: cough TECHNIQUE: 2D digital imaging was performed of the chest. One image was obtained. An AP view was ob tained. COMPARISON: CR XR CHEST 2V PA LATERAL from 10/06/2018 FINDINGS: MEDIASTINUM: Normal. HEART: Normal. PULMONARY VASCULATURE: Normal. LUNGS: No focal consolidating infiltrates. PLEURAL SPACE: No pleural effusion or pneumothorax. BONE:Within normal limits for the patient's age. OTHER FINDINGS:Normal. IMPRESSION: No acute pulmonary findings. DATA REPOSITORY: RADIATION DOSE DELIVERED:
[2022-09-10 09:49] LABS: Bilirubin Negative (Negative); Blood Negative (Negative); Clarity Clear (Clear); Glucose Negative (Negative); Ketones 15 mg/dL (Negative); Leukocyte Esterase Negative (Negative); Nitrite Negative (Negative); Urobilinogen 0.2 mg/dL (Up to 0.2); pH 6.5 (5-8)
[2022-09-10 10:11] VITALS: BP 135/73; PULSE 79
[2022-09-10 10:16] VITALS: BP 134/71; PULSE 77
[2022-09-10] MEDS: Acetaminophen 500 MG TAB 1000 MG PO (10:29)
[2022-09-10 10:31] VITALS: BP 155/76; PULSE 81
== END 2022-09-10 11:00 | disposition home or self-care (01) ==
PROVIDERS: Emergency Medicine; Emergency Provider Emergency Medicine; PCP Family Medicine
DX: U07.1 COVID-19 (principal); R10.9 Unspecified abdominal pain
CPT/HCPCS: 36415; 80053; 83690; 87637; 93005; 96361; 96374; 96376; 99285; 71045; 74177; 81003; 83735; 84484; 85025; 93010; 99284; J2405; J3490